=== PATIENT | male | born 1995 | race Caucasian/White ===

== ENCOUNTER 2017-07-19 11:26 | Emergency (ER) | payer SELFPAY, OTHER ==
[2017-07-19 11:46] LABS: ADD MAN DIFF? NO
[2017-07-19 11:49] LABS: WHITE BLOOD COUNT 16.3 10^3/ul (4.8-10.8)
[2017-07-19 11:49] LABS: BASOPHIL # 0.1 10^3/ul (0.0-0.1); BASOPHILS % 0.3 % (0.0-2.0); EOSINOPHILS # 0.1 10^3/ul (0.0-0.5); EOSINOPHILS % 0.5 % (0.0-7.0); HEMATOCRIT 50.2 % (42.0-52.0); HEMOGLOBIN 16.7 g/dl (14.0-18.0); LYMPHOCYTES # 4.7 10^3/ul (0.8-2.9); LYMPHOCYTES % 28.8 % (15.0-51.0); MEAN CORPUSCULAR HEMOGLOBIN 28.2 pg (29.0-33.0); MEAN CORPUSCULAR HGB CONC 33.3 g/dl (32.0-37.0); MEAN CORPUSCULAR VOLUME 84.7 fl (82.0-101.0); MEAN PLATELET VOLUME 9.3 fl (7.4-10.4); MONOCYTE # 1.5 10^3/ul (0.3-0.9); MONOCYTES % 8.9 % (0.0-11.0); NEUTROPHIL # 9.9 10^3/ul (1.6-7.5); NEUTROPHILS % 60.8 % (39.0-77.0); PLATELET COUNT 352 10^3/UL (140-415); RED BLOOD COUNT 5.93 10^6/ul (4.70-6.10); RED CELL DISTRIBUTION WIDTH 12.7 % (11.5-14.5)
[2017-07-19 12:14] LABS: ANION GAP 33 (8-16); BLOOD UREA NITROGEN 13 mg/dl (7-20); CALCIUM 9.3 mg/dl (8.4-10.2); CARBON DIOXIDE 13 mmol/L (21-31); CHLORIDE 100 mmol/L (97-110); CREATININE 0.81 mg/dl (0.61-1.24); GLUCOSE 140 mg/dl (70-220); POTASSIUM 3.4 mmol/L (3.5-5.1); SODIUM 143 mmol/L (135-144)
[2017-07-19 12:17] LABS: CANNABINOIDS Negative (NEGATIVE)
[2017-07-19 12:25] LABS: AMPHETAMINE/METHAMPHETAMINE POSITIVE (NEGATIVE); BARBITURATES Negative (NEGATIVE); BENZODIAZEPINES Negative (NEGATIVE); COCAINE Negative (NEGATIVE); OPIATES Negative (NEGATIVE)
[2017-07-19 12:29] LABS: TROPONIN-I < 0.012 ng/ml (0.00-0.12)
[2017-07-19 12:39] LABS: ETHANOL < 10.0 mg/dl
[2017-07-19] MEDS: SOD CHLORIDE 0.9% 1,000 ML IV (12:49)
[2017-07-19] MEDS: PROPOFOL 200 MG INJ IV (12:49)
[2017-07-19] MEDS: KETOROLAC 30 MG INJ IV (12:51)
[2017-07-19 13:07] LABS: VALPROATE < 10 ug/ml (50-100)
[2017-07-19] MEDS ORDERED: VALPROATE INJ 1,000 MG in SOD CHLORIDE 0.9% 100 ML IVPB (13:30)
[2017-07-19] MEDS: LEVETIRACETAM 1000 MG (PMX) 100 ML IVPB (13:44)
== END 2017-07-19 15:00 | disposition home or self-care (01) ==
LOC: E/R 11:26
DX: R56.9 Unspecified convulsions (principal); F12.10 Cannabis abuse, uncomplicated; F17.210 Nicotine dependence, cigarettes, uncomplicated; S03.03XA Dislocation of jaw, bilateral, initial encounter; S80.212A Abrasion, left knee, initial encounter; S80.211A Abrasion, right knee, initial encounter; R07.9 Chest pain, unspecified; X58.XXXA Exposure to other specified factors, initial encounter; Y92.9 Unspecified place or not applicable
CPT/HCPCS: 21480; 36415; 71045; 80048; 80164; 80306; 80307; 82962; 84484; 85025; 93005; 94770; 96374; 96375; 99285-25